=== PATIENT | female | born 1990 | race Caucasian/White ===

== ENCOUNTER 2018-10-14 10:53 | Emergency (ER) | payer OTHER ==
[2018-10-14] MEDS ORDERED: ONDANSETRON 4 MG TAB.RAPDIS PO ONE (11:19)
--- NOTE | 2018-10-14 11:23 | ER Document Report ---
ED Medical Screen (RME) - General Chief Complaint: Dizziness Stated Complaint: DIZZY/NAUSEA Time Seen by Provider: 10/14/18 11:19 Primary Care Provider: JULIO CESAR JAUREGUI [Primary Care Provider] - Follow up as needed Mode of Arrival: Ambulatory Information source: Patient TRAVEL OUTSIDE OF THE [place] IN LAST 30 DAYS: No - HPI Patient complains to provider of: dizziness; N/V Onset: This morning - pt is approx 29 wks with onset of dizziness, N/V earlier this am - Related Data Allergies/Adverse Reactions: amoxicillin Allergy (Verified 10/14/18 10:55) Past Medical History Renal/ Medical History: Denies: Hx Peritoneal Dialysis Physical Exam - Vital signs Vitals: Temp Pulse Resp BP Pulse Ox 97.8 F 92 18 129/80 H 97 10/14/18 11:01 10/14/18 11:01 10/14/18 11:01 10/14/18 11:01 10/14/18 11:01 Course - Vital Signs Vital signs: Temp Pulse Resp BP Pulse Ox 97.8 F 92 18 129/80 H 97 10/14/18 11:01 10/14/18 11:01 10/14/18 11:01 10/14/18 11:01 10/14/18 11:01 Doctor's Discharge - Discharge Referrals: JULIO CESAR JAUREGUI [Primary Care Provider] - Follow up as needed
[2018-10-14 11:50] LABS: ABSOLUTE EOSINOPHILS # (AUTO) 0.1 10^3/uL (0.0-0.6); ABSOLUTE MONOCYTES (AUTO) 0.7 10^3/uL (0.1-1.4); ABSOLUTE NEUT (AUTO) 5.9 10^3/uL (1.7-8.2); BASOPHILS % (AUTO) 0.4 % (0-2); EOSINOPHILS % (AUTO) 1.6 % (0-6); HEMATOCRIT 35.3 % (36.0-47.0); HEMOGLOBIN 12.5 g/dL (12.0-15.5); LYMPHOCYTES % (AUTO) 22.9 % (13-45); MEAN CORPUSCULAR HEMOGLOBIN 29.6 pg (27.0-33.4); MEAN CORPUSCULAR HGB CONC 35.3 g/dL (32.0-36.0); MEAN CORPUSCULAR VOLUME 84 fl (80-97); PLATELET COUNT 168 10^3/uL (150-450); SEGMENTED NEUTROPHILS % (AUTO) 67.1 % (42-78); TOTAL CELLS COUNTED % (AUTO) 100 %; WHITE BLOOD COUNT 8.9 10^3/uL (4.0-10.5)
[2018-10-14] MEDS ORDERED: MECLIZINE HCL 25 MG TABLET PO ONE (11:53)
[2018-10-14 12:07] LABS: ALANINE AMINOTRANSFERASE 24 U/L (9-52); ALBUMIN 3.5 g/dL (3.5-5.0); ALKALINE PHOSPHATASE 92 U/L (38-126); ANION GAP 8 (5-19); ASPARTATE AMINO TRANSFERASE 15 U/L (14-36); BILIRUBIN,DIRECT 0.1 mg/dL (0.0-0.4); BILIRUBIN,TOTAL 0.2 mg/dL (0.2-1.3); BLOOD UREA NITROGEN 5 mg/dL (7-20); CALCIUM 8.9 mg/dL (8.4-10.2); CARBON DIOXIDE 22 mmol/L (22-30); CHLORIDE 105 mmol/L (98-107); GLUCOSE 84 mg/dL (75-110); POTASSIUM 4.1 mmol/L (3.6-5.0); SODIUM 134.7 mmol/L (137-145)
[2018-10-14 12:39] LABS: APPEARANCE,URINE SLIGHTLY-CLOUDY; BILIRUBIN,URINE NEGATIVE (NEGATIVE); COLOR,URINE YELLOW; GLUCOSE, URINE NEGATIVE (NEGATIVE); KETONES,URINE NEGATIVE (NEGATIVE); LEUKOCYTE ESTERASE,URINE NEGATIVE (NEGATIVE); NITRITE,URINE NEGATIVE (NEGATIVE); PROTEIN,URINE NEGATIVE (NEGATIVE); URINE SPECIFIC GRAVITY 1.003; UROBILINOGEN,URINE NEGATIVE mg/dL (<2.0)
--- NOTE | 2018-10-14 13:08 | ER Document Report ---
ED Dizziness/Weakness - General Chief Complaint: Dizziness Stated Complaint: DIZZY/NAUSEA Time Seen by Provider: 10/14/18 11:19 Primary Care Provider: JULIO CESAR JAUREGUI [NO LOCAL MD] - Follow up as needed Mode of Arrival: Ambulatory Notes: Pt is a 28 year old female, 29 weeks who presents today for dizziness that she woke up with this morning and is worse when she changes position and looks around. She describes it has a "spinning" feeling and denies headache with it but admits to nausea, vomiting and states she can't hold anything down. She denies any abdominal pain, states baby has been moving a lot today. She denies sick symptoms recently or hx of vertigo, she has had a recent cold that is getting better and denies ringing of the ears. She did fail her gestational diabetes 1 hour glucose test but states she'd eaten muffins on the way to the office and has no history of diabetes otherwise. TRAVEL OUTSIDE OF THE [place] IN LAST 30 DAYS: No - Related Data Allergies/Adverse Reactions: amoxicillin Allergy (Verified 10/14/18 10:55) Past Medical History - General Information source: Patient - Social History Smoking Status: Former Smoker Family History: Reviewed & Not Pertinent Patient has suicidal ideation: No Patient has homicidal ideation: No Renal/ Medical History: Denies: Hx Peritoneal Dialysis Review of Systems - Review of Systems Constitutional: No symptoms reported EENT: See HPI Cardiovascular: No symptoms reported Respiratory: No symptoms reported Gastrointestinal: See HPI Genitourinary: No symptoms reported Female Genitourinary: See HPI Musculoskeletal: No symptoms reported Skin: No symptoms reported Hematologic/Lymphatic: No symptoms reported Neurological/Psychological: See HPI Physical Exam - Vital signs Vitals: Temp Pulse Resp BP Pulse Ox 97.8 F 92 18 129/80 H 97 10/14/18 11:01 10/14/18 11:01 10/14/18 11:01 10/14/18 11:01 10/14/18 11:01 - Notes Notes: PHYSICAL EXAMINATION: GENERAL: Well-appearing and in no acute distress. HEAD: Atraumatic, normocephalic. EYES: no nystagmus, Pupils equal round and reactive to light, extraocular movements intact, sclera anicteric, conjunctiva are normal. ENT: ear canals without erythema or foreign body, TMs pearly [place] with good bony landmarks, nares patent, oropharynx clear without exudates. Moist mucous membranes. NECK: Normal range of motion, supple without lymphadenopathy LUNGS: CTAB and equal. No wheezes rales or rhonchi. HEART: Regular rate and rhythm without murmurs ABDOMEN: gravid, no tenderness. No guarding, no rebound BACK: no vertebral tenderness, normal ROM GI/: no CVA tenderness EXTREMITIES: Normal range of motion, no pitting edema. No cyanosis. NEUROLOGICAL: dizzy with simple head movements, otherwise Cranial nerves grossly intact. Normal sensory/motor exams. PSYCH: Normal mood, normal affect. SKIN: Warm, Dry, normal turgor, no rashes or lesions noted Course - Re-evaluation Re-evalutation: 10/14/18 13:15 labwork unremarkable today with normal glucose, pt able to sit up in bed and is smiling and talking with kids and on re-evaluation after meclizine. She states she feels "so much better." heart tones 156bpm. pt discharged in stable condition to follow up with obgyn. - Vital Signs Vital signs: Temp Pulse Resp BP Pulse Ox 97.4 F 85 17 121/83 97 10/14/18 13:16 10/14/18 13:16 10/14/18 13:16 10/14/18 13:16 10/14/18 13:16 - Laboratory Result Diagrams: 10/14/18 11:30 10/14/18 11:30 Laboratory results interpreted by me: 10/14/18 10/14/18 11:30 11:30 Hct 35.3 L RDW 15.0 H Sodium 134.7 L BUN 5 L Creatinine 0.42 L Total Protein 6.0 L Discharge - Discharge Clinical Impression: Vertigo Condition: Stable Disposition: HOME, SELF-CARE Additional Instructions: Return immediately for any new or worsening symptoms. Follow up with OBGYN, call tomorrow to make followup appointment. Prescriptions: Meclizine HCl [Antivert 25 mg Tablet] 25 mg PO TID #15 tablet Metoclopramide HCl [Reglan 10 mg Tablet] 10 mg PO ACHS #30 tablet Referrals: LOCALMD,NO [NO LOCAL MD] - Follow up as needed
[2018-10-14 13:17] VITALS: BP 121/83
== END 2018-10-14 13:19 | disposition home or self-care (01) ==
LOC: ER 10:53
DX: O26.93 Pregnancy related conditions, unspecified, third trimester (principal); R42 Dizziness and giddiness; R11.0 Nausea; Z3A.29 29 weeks gestation of pregnancy
CPT/HCPCS: 99284; 36415; 85025; 80053; 81001; S0119

== ENCOUNTER 2018-12-07 08:18 | Inpatient (IN) | payer OTHER ==
[2018-12-07] MEDS ORDERED: RINGERS SOLUTION,LACTATED 300 ML IV ONE (09:45)
[2018-12-07] MEDS ORDERED: RINGERS SOLUTION,LACTATED 1,000 ML IV PRN (09:45)
[2018-12-07] MEDS ORDERED: OXYTOCIN/NORMAL SALINE 20 UNIT/1,000 ML RTUINJ IV PRN (09:45)
[2018-12-07] MEDS ORDERED: LIDOCAINE 1% INJ-PF (10 MG/ML) 30 ML SDV ONE (09:47)
[2018-12-07] MEDS ORDERED: MISOPROSTOL 0.2 MG TABLET ONE (09:47)
[2018-12-07] MEDS ORDERED: OXYTOCIN/NORMAL SALINE 20 UNIT/1,000 ML RTUINJ ONE (09:47)
[2018-12-07 11:22] LABS: ABSOLUTE EOSINOPHILS # (AUTO) 0.1 10^3/uL (0.0-0.6); ABSOLUTE LYMPHOCYTES (AUTO) 1.7 10^3/uL (0.5-4.7); ABSOLUTE MONOCYTES (AUTO) 0.5 10^3/uL (0.1-1.4); ABSOLUTE NEUT (AUTO) 5.7 10^3/uL (1.7-8.2); BASOPHILS % (AUTO) 0.3 % (0-2); EOSINOPHILS % (AUTO) 1.1 % (0-6); HEMATOCRIT 36.1 % (36.0-47.0); HEMOGLOBIN 12.4 g/dL (12.0-15.5); LYMPHOCYTES % (AUTO) 21.4 % (13-45); MEAN CORPUSCULAR HEMOGLOBIN 29.4 pg (27.0-33.4); MEAN CORPUSCULAR HGB CONC 34.4 g/dL (32.0-36.0); MEAN CORPUSCULAR VOLUME 86 fl (80-97); MONOCYTES % (AUTO) 6.7 % (3-13); PLATELET COUNT 126 10^3/uL (150-450); RED BLOOD COUNT 4.22 10^6/uL (3.72-5.28); RED CELL DISTRIBUTION WIDTH 14.6 % (11.5-14.0); SEGMENTED NEUTROPHILS % (AUTO) 70.5 % (42-78); TOTAL CELLS COUNTED % (AUTO) 100 %
[2018-12-07 11:31] LABS: APPEARANCE,URINE CLOUDY; BILIRUBIN,URINE NEGATIVE (NEGATIVE); COLOR,URINE YELLOW; GLUCOSE, URINE NEGATIVE (NEGATIVE); KETONES,URINE NEGATIVE (NEGATIVE); LEUKOCYTE ESTERASE,URINE NEGATIVE (NEGATIVE); NITRITE,URINE NEGATIVE (NEGATIVE); PROTEIN,URINE NEGATIVE (NEGATIVE); URINE SPECIFIC GRAVITY 1.016; UROBILINOGEN,URINE NEGATIVE mg/dL (<2.0)
[2018-12-07 11:45] LABS: ALANINE AMINOTRANSFERASE 21 U/L (9-52); ALBUMIN 3.2 g/dL (3.5-5.0); ALKALINE PHOSPHATASE 138 U/L (38-126); ANION GAP 9 (5-19); ASPARTATE AMINO TRANSFERASE 18 U/L (14-36); BILIRUBIN,DIRECT 0.2 mg/dL (0.0-0.4); BILIRUBIN,TOTAL 0.3 mg/dL (0.2-1.3); BLOOD UREA NITROGEN 5 mg/dL (7-20); CALCIUM 8.8 mg/dL (8.4-10.2); CARBON DIOXIDE 21 mmol/L (22-30); CHLORIDE 108 mmol/L (98-107); GLUCOSE 112 mg/dL (75-110); POTASSIUM 3.8 mmol/L (3.6-5.0); SODIUM 137.6 mmol/L (137-145); TOTAL PROTEIN 5.7 g/dL (6.3-8.2); URIC ACID 4.9 mg/dL (2.5-6.2)
[2018-12-07 11:48] LABS: URINE AMPHETAMINES SCREEN NEGATIVE; URINE BARBITURATES SCREEN NEGATIVE; URINE BENZODIAZEPINES SCREEN NEGATIVE; URINE COCAINE SCREEN NEGATIVE; URINE MARIJUANA (THC) SCREEN NEGATIVE; URINE METHADONE SCREEN NEGATIVE; URINE PHENCYCLIDINE SCREEN NEGATIVE
[2018-12-07 11:55] LABS: UR PRO/CREAT RATIO RESULT 0.1 mg/mg (0.0-0.2); URINE CREATININE 122.9 mg/dL (16-327); URINE PROTEIN 7.7 mg/dL (<12)
[2018-12-07] MEDS ORDERED: EPHEDRINE SULFATE INJ 50 MG/1 ML AMPULE ONE (16:50)
[2018-12-07] MEDS ORDERED: BUPIVACAINE HCL 0.25 % INJ/PF (2.5 MG/1 ML) 30 ML VIAL ONE (16:50)
[2018-12-07] MEDS ORDERED: FENTANYL/BUPIVACAINE/NS/PF 300 MCG/150 ML RTUINJ EPI ONE (16:50)
[2018-12-07 17:07] LABS: ABSOLUTE EOSINOPHILS # (AUTO) 0.1 10^3/uL (0.0-0.6); ABSOLUTE MONOCYTES (AUTO) 0.7 10^3/uL (0.1-1.4); ABSOLUTE NEUT (AUTO) 6.4 10^3/uL (1.7-8.2); BASOPHILS % (AUTO) 0.3 % (0-2); EOSINOPHILS % (AUTO) 0.9 % (0-6); HEMATOCRIT 36.8 % (36.0-47.0); HEMOGLOBIN 12.6 g/dL (12.0-15.5); LYMPHOCYTES % (AUTO) 21.9 % (13-45); MEAN CORPUSCULAR HEMOGLOBIN 29.1 pg (27.0-33.4); MEAN CORPUSCULAR HGB CONC 34.1 g/dL (32.0-36.0); MEAN CORPUSCULAR VOLUME 85 fl (80-97); MONOCYTES % (AUTO) 7.1 % (3-13); PLATELET COUNT 128 10^3/uL (150-450); RED BLOOD COUNT 4.31 10^6/uL (3.72-5.28); RED CELL DISTRIBUTION WIDTH 15.2 % (11.5-14.0); SEGMENTED NEUTROPHILS % (AUTO) 69.8 % (42-78); TOTAL CELLS COUNTED % (AUTO) 100 %; WHITE BLOOD COUNT 9.1 10^3/uL (4.0-10.5)
[2018-12-07] MEDS ORDERED: ONDANSETRON HCL INJ/PF 4 MG/2 ML SDV ONE (23:36)
[2018-12-07] MEDS ORDERED: ONDANSETRON HCL INJ/PF 4 MG/2 ML SDV IV ONE (23:59)
[2018-12-08] MEDS ORDERED: OXYTOCIN/NORMAL SALINE 20 UNIT/1,000 ML RTUINJ ONE (01:28)
--- NOTE | 2018-12-08 02:08 | Delivery Summary ---
Del Sum A-C Datetime Report Generated by CPN: 12/08/2018 02:08 DELIVERY PERSONNEL DELIVERY PERSONNEL: [id number] Delivery Doctor:: Iris Xiao MD Labor and Delivery Nurse:: Shima Villasenor, RN Nursery Nurse:: Michelle MckeonLYNDSAY juarez Lure Maker/INDIAN NANNY: Jana Pacheco, BAND BUILDER MATERNAL INFORMATION Delivery Anesthesia: Epidural Medications After Delivery: Pitocin Drip 20 Units/1000ml NSS Maternal Complications: None LABOR SUMMARY EDC: 12/28/2018 00:00 No. Babies in Womb: 1 Attempted: No Labor Anesthesia: Epidural LABOR INFORMATION Reason for Induction: Chronic Primary/Essential HTN; Maternal Diabetes Onset of Labor: 12/07/2018 18:27 Complete Dilatation: 12/08/2018 00:46 Oxytocin: Induction Group B Beta Strep: Negative Steroids Given: None Reason Steroids Not Administered: Not Applicable MEMBRANES Membranes Rupture Method: Artificial Rupture of Membranes: 12/07/2018 22:45 Length of Rupture (hr): 2.23 Amniotic Fluid Color: Clear Amniotic Fluid Amount: Moderate Amniotic Fluid Odor: Normal STAGES OF LABOR Stage 1 hr: 6 Stage 1 min: 19 Stage 2 hr: 0 Stage 2 min: 13 Stage 3 hr: 0 Stage 3 min: 3 Total Time in Labor hr: 6 Total Time in Labor min: 35 VAGINAL DELIVERY Episiotomy: None Laceration #1: None Laceration Extension #1: N/A Laceration Repair: Not Applicable CSECTION DELIVERY Primary Indication: N/A Secondary Indication: N/A CSection Incidence: N/A Labor: N/A Elective: N/A CSection Incision: N/A BABY A INFORMATION Infant Delivery Date/Time: 12/08/2018 00:59 Method of Delivery: Vaginal Born in Route : No : N/A Forceps: N/A Vacuum Extraction: N/A Shoulder Dystocia : No PRESENTATION/POSITION BABY A Presentation: Cephalic Cephalic Presentation: Vertex Vertex Position: Right Occipital Anterior Breech Presentation: N/A PLACENTA INFORMATION BABY A Placenta Delivery Time : 12/08/2018 01:02 Placenta Method of Delivery: Spontaneous Placenta Status: Delivered SCORES BABY A Heart Rate 1 min: >100 bpm Resp Effort 1 min: Good Cry Reflex Irritability 1 min: Cough or Sneeze or Pulls Away Muscle Tone 1 min: Active Motion Color 1 min: Body [place], Extremities Blue Resuscitation Effort 1 min: Tactile Stimulation SCORE 1 MIN: 9 Heart Rate 5 min: >100 bpm Resp Effort 5 min: Good Cry Reflex Irritability 5 min: Cough or Sneeze or Pulls Away Muscle Tone 5 min: Active Motion Color 5 min: Body [place], Extremities Blue Resuscitation Effort 5 min: Tactile Stimulation SCORE 5 MIN: 9 INFANT INFORMATION BABY A Gestational Age at Delivery: 37.1 Gestational Status: Early Term- 37- 38.6 Weeks Outcome : Liveborn Infant Condition : Stable Infant Sex: Male IDENTIFICATION BABY A Verification Date/Time: 12/08/2018 01:21 ID Band Number: [id number] Mother's Name Verified: Yes RN Verifying Infant: Bisi LYNDSAY Additional Verifying Personnel: Avery Jovoncalos RN WEIGHT/LENGTH BABY A Infant Birthweight (gm): 3599 Infant Weight (lb): 7 Weight (oz): 15 Infant Length (in): 21.00 Length (cm): 53.34 CORD INFORMATION BABY A No. Cord Vessels: 3 Nuchal Cord : Around Neck x1, Loose Cord Blood Taken: Yes-For Storage (Mom's Blood type +) Suction: Mouth; Nose ASSESSMENT BABY A Complications: Other Complications- Other: right compound hand Physical Findings at Delivery: Within Normal Limits Physical Findings- Other: see full nursery cable tool operator Infant Respirations: Appears Normal Skin to Skin: Yes Analytical Lead/ALS Called : No Infant Care By: Temo Murillo RN Transferred To: Remains with Mother BABY B INFORMATION : N/A
--- NOTE | 2018-12-08 02:18 | Warning Signs in Babies ---
VOD Warning Signs Datetime Report Generated by [facility]: 12/08/2018 02:17 VOD#[id number] -Warning Signs in Babies: Needs to be viewed. (12/04/2018 19:48:Shima Villasenor RN)
[2018-12-08] MEDS ORDERED: OXYTOCIN/NORMAL SALINE 20 UNIT/1,000 ML RTUINJ IV PRN (02:20)
[2018-12-08] MEDS ORDERED: PROMETHAZINE HCL 25 MG TABLET PO PRN (02:20)
[2018-12-08] MEDS ORDERED: NA PHOS,M-B/NA PHOS,DI-BA (ADULT) 133 ML ENEMA PR PRN (02:20)
[2018-12-08] MEDS ORDERED: ZOLPIDEM TARTRATE 5 MG TABLET PO PRN (02:20)
[2018-12-08] MEDS ORDERED: DIPH/PERTUSS(ACELL)/TETANUS VAC/PF 0.5 ML SYR (>=10YO) IM PRN (02:20)
[2018-12-08] MEDS ORDERED: DIPHENHYDRAMINE HCL 25 MG CAPSULE PO PRN (02:20)
[2018-12-08] MEDS ORDERED: ACETAMINOPHEN 325 MG TABLET PO PRN (02:20)
[2018-12-08] MEDS ORDERED: PROMETHAZINE HCL 25 MG SUPP.RECT PR PRN (02:20)
[2018-12-08] MEDS ORDERED: PSEUDOEPHEDRINE HCL 30 MG TABLET PO PRN (02:20)
[2018-12-08] MEDS ORDERED: DIBUCAINE 1% OINTMENT 56 GM TP PRN (02:20)
[2018-12-08] MEDS ORDERED: PROMETHAZINE HCL INJ 25 MG/1 ML VIAL IV PRN (02:20)
[2018-12-08] MEDS ORDERED: MEASLES,MUMPS&RUBELLA VACC/PF 0.5 ML VIAL SUBCUT PRN (02:20)
[2018-12-08] MEDS ORDERED: GLYCERIN/WITCH HAZEL LEAF 1 EACH MED..WIPE TP PRN (02:20)
[2018-12-08] MEDS ORDERED: BENZOCAINE/MENTHOL AEROSOL SPRAY 56 ML TOP PRN (02:20)
[2018-12-08] MEDS ORDERED: MAGNESIUM HYDROXIDE SUSP 30 ML UDCUP PO PRN (02:20)
[2018-12-08] MEDS ORDERED: ACETAMINOPHEN WITH CODEINE #3 TABLET PO PRN ×2 (02:20)
[2018-12-08] MEDS: IBUPROFEN 800 MG TABLET PO SCH ×3 (05:21→22:47)
--- NOTE | 2018-12-08 09:17 | PDOC PROGRESS REPORT ---
Subjective-OB Progress Note for:: 12/08/18 Subjective: Doing well, hsb at BS, feeling good, lochia moderate Physical Exam (OB) Vital Signs: Temp Pulse Resp BP Pulse Ox 97.8 F 83 18 114/79 100 12/08/18 08:03 12/08/18 08:03 12/08/18 08:03 12/08/18 08:03 12/08/18 08:03 Intake & Output 12/07/18 12/08/18 12/09/18 06:59 06:59 06:59 Weight 108.7 kg - PIH/Pre-Eclampsia DTR's: 1 + Clonus: Negative Headache: Absent Epigastric Pain: No Visual Changes: No - Lochia Lochia Amount: Scant < 10 ml Lochia Color: Rubra/Red - Abdomen Description: Soft, Round Hernia Present: No Fundal Description: Firm, Midline Fundal Height: u/u - u/2 Objective-Diagnostic Laboratory: 12/07/18 16:44 12/07/18 10:25 12/07/18 12/07/18 12/07/18 08:34 10:25 10:25 WBC 8.0 RBC 4.22 Hgb 12.4 Hct 36.1 MCV 86 MCH 29.4 MCHC 34.4 RDW 14.6 H Plt Count 126 L Seg Neutrophils % 70.5 Lymphocytes % 21.4 Monocytes % 6.7 Eosinophils % 1.1 Basophils % 0.3 Absolute Neutrophils 5.7 Absolute Lymphocytes 1.7 Absolute Monocytes 0.5 Absolute Eosinophils 0.1 Absolute Basophils 0.0 Sodium Potassium Chloride Carbon Dioxide Anion Gap BUN Creatinine Est GFR ( Amer) Est GFR (Non-Af Amer) Glucose Uric Acid Calcium Total Bilirubin AST ALT Alkaline Phosphatase Total Protein Albumin Urine Color YELLOW Urine Appearance CLOUDY Urine pH 5.0 Ur Specific [place] 1.016 Urine Protein NEGATIVE Urine Glucose (UA) NEGATIVE Urine Ketones NEGATIVE Urine Blood NEGATIVE Urine Nitrite NEGATIVE Ur Leukocyte Esterase NEGATIVE Urine WBC (Auto) 7 Urine RBC (Auto) 2 Blood Type A POSITIVE Antibody Screen NEGATIVE 12/07/18 12/07/18 10:25 16:44 WBC 9.1 RBC 4.31 Hgb 12.6 Hct 36.8 MCV 85 MCH 29.1 MCHC 34.1 RDW 15.2 H Plt Count 128 L Seg Neutrophils % 69.8 Lymphocytes % 21.9 Monocytes % 7.1 Eosinophils % 0.9 Basophils % 0.3 Absolute Neutrophils 6.4 Absolute Lymphocytes 2.0 Absolute Monocytes 0.7 Absolute Eosinophils 0.1 Absolute Basophils 0.0 Sodium 137.6 Potassium 3.8 Chloride 108 H Carbon Dioxide 21 L Anion Gap 9 BUN 5 L Creatinine 0.41 L Est GFR ( Amer) > 60 Est GFR (Non-Af Amer) > 60 Glucose 112 H Uric Acid 4.9 Calcium 8.8 Total Bilirubin 0.3 AST 18 ALT 21 Alkaline Phosphatase 138 H Total Protein 5.7 L Albumin 3.2 L Urine Color Urine Appearance Urine pH Ur Specific [place] Urine Protein Urine Glucose (UA) Urine Ketones Urine Blood Urine Nitrite Ur Leukocyte Esterase Urine WBC (Auto) Urine RBC (Auto) Blood Type Antibody Screen Assessment and Plan(PN) - Assessment and Plan (1) Vaginal delivery Is this a current diagnosis for this admission?: Yes (2) Gestational diabetes mellitus (GDM) in childbirth, diet controlled Is this a current diagnosis for this admission?: Yes (3) Gestational thrombocytopenia without hemorrhage in third trimester Is this a current diagnosis for this admission?: Yes (4) Chronic hypertension affecting Is this a current diagnosis for this admission?: Yes - Time Spent with Patient Time with patient: Less than 15 minutes Medications reviewed and adjusted accordingly: Yes - Disposition Anticipated Discharge: Home Within: within 24 hours
[2018-12-08] MEDS: DOCUSATE SODIUM 100 MG CAPSULE PO SCH ×2 (09:19→18:24)
[2018-12-08] MEDS: PRENATAL VITAMIN W DHA CAPSULE PO SCH (09:19)
[2018-12-08] MEDS: SENNOSIDES/DOCUSATE 8.6-50 MG 1 EACH TABLET PO SCH (09:19)
[2018-12-08] MEDS: FAMOTIDINE 20 MG TABLET PO SCH ×2 (09:19→22:47)
[2018-12-08] MEDS: FERROUS SULFATE 325 MG TABLET PO SCH ×2 (09:19→18:24)
[2018-12-09] MEDS: IBUPROFEN 800 MG TABLET PO SCH ×2 (05:41→14:13)
[2018-12-09 07:32] LABS: HEMATOCRIT 36.3 % (36.0-47.0); HEMOGLOBIN 12.5 g/dL (12.0-15.5); MEAN CORPUSCULAR HEMOGLOBIN 29.5 pg (27.0-33.4); MEAN CORPUSCULAR HGB CONC 34.5 g/dL (32.0-36.0); MEAN CORPUSCULAR VOLUME 86 fl (80-97); PLATELET COUNT 142 10^3/uL (150-450); RED BLOOD COUNT 4.25 10^6/uL (3.72-5.28); RED CELL DISTRIBUTION WIDTH 15.4 % (11.5-14.0); WHITE BLOOD COUNT 8.7 10^3/uL (4.0-10.5)
--- NOTE | 2018-12-09 09:17 | PDOC PROGRESS REPORT ---
Subjective-OB Progress Note for:: 12/09/18 Subjective: Doing well, holding baby, would like to go home if baby goes, scant bleeding Physical Exam (OB) Vital Signs: Temp Pulse Resp BP Pulse Ox 98.0 F 77 14 126/77 H 100 12/09/18 08:10 12/09/18 08:10 12/09/18 08:10 12/09/18 08:10 12/09/18 08:10 Intake & Output 12/08/18 12/09/18 12/10/18 06:59 06:59 06:59 Weight 108.7 kg - PIH/Pre-Eclampsia DTR's: 2 + Clonus: Negative Headache: Absent Epigastric Pain: No Visual Changes: No - Lochia Lochia Amount: Small 10-25 ml Lochia Color: Rubra/Red - Abdomen Description: Soft, Round Hernia Present: No Fundal Description: Firm Fundal Height: u/u - u/2 Objective-Diagnostic Laboratory: 12/09/18 07:03 12/07/18 10:25 12/09/18 07:03 WBC 8.7 RBC 4.25 Hgb 12.5 Hct 36.3 MCV 86 MCH 29.5 MCHC 34.5 RDW 15.4 H Plt Count 142 L Assessment and Plan(PN) - Assessment and Plan (1) Vaginal delivery Is this a current diagnosis for this admission?: Yes (2) Gestational diabetes mellitus (GDM) in childbirth, diet controlled Is this a current diagnosis for this admission?: Yes (3) Gestational thrombocytopenia without hemorrhage in third trimester Is this a current diagnosis for this admission?: Yes (4) Chronic hypertension affecting Is this a current diagnosis for this admission?: Yes - Time Spent with Patient Time with patient: Less than 15 minutes Medications reviewed and adjusted accordingly: Yes - Disposition Anticipated Discharge: Home Within: within 24 hours
[2018-12-09] MEDS: SENNOSIDES/DOCUSATE 8.6-50 MG 1 EACH TABLET PO SCH (10:18)
[2018-12-09] MEDS: PRENATAL VITAMIN W DHA CAPSULE PO SCH (10:18)
[2018-12-09] MEDS: FERROUS SULFATE 325 MG TABLET PO SCH (10:18)
[2018-12-09] MEDS: DOCUSATE SODIUM 100 MG CAPSULE PO SCH (10:18)
[2018-12-09] MEDS: FAMOTIDINE 20 MG TABLET PO SCH (10:20)
--- NOTE | 2018-12-09 15:08 | PDOC DISCHARGE SUMMARY ---
Final Diagnosis Discharge Date: 12/09/18 - Final Diagnosis (1) Chronic hypertension affecting Is this a current diagnosis for this admission?: Yes (2) Gestational diabetes mellitus (GDM) in childbirth, diet controlled Is this a current diagnosis for this admission?: Yes (3) Gestational thrombocytopenia without hemorrhage in third trimester Is this a current diagnosis for this admission?: Yes (4) Vaginal delivery Is this a current diagnosis for this admission?: Yes Discharge Data - Discharge Medication Prescriptions: Acetaminophen [Tylenol 325 mg Tablet] 650 mg PO Q4HP PRN 14 Days #60 tablet PRN Reason: For Pain Benzocaine/Menthol [Dermoplast Aerosol [place] 56 ml] 1 applic TOP PRN PRN #1 can PRN Reason: Ibuprofen [Motrin 800 mg Tablet] 800 mg PO Q8 30 Days #60 tablet Home Medications: Vit,Calc76/Iron/Folic [Pnv 29-1 Tablet] 1 tab PO DAILY 12/04/18 Acetaminophen [Tylenol 325 mg Tablet] 650 mg PO Q4HP PRN 14 Days #60 tablet 12/09/18 Benzocaine/Menthol [Dermoplast Aerosol [place] 56 ml] 1 applic TOP PRN PRN #1 can 12/09/18 Dibucaine 1% Ointment [Nupercainal 1% Oint 56 gm] 1 applic TP PRN PRN #0 tube 12/09/18 Docusate Sodium [Colace 100 mg Capsule] 100 mg PO BID capsule 12/09/18 Famotidine [Pepcid 20 mg Tablet] 20 mg PO Q12 tablet 12/09/18 Ferrous Sulfate [Feosol 325 mg Tablet] 325 mg PO BID tablet 12/09/18 Glycerin/Witch Blaire Ismay [Tucks Take-Alongs Pads 1 Each] 1 each TP DAILYP PRN med..pad 12/09/18 Ibuprofen [Motrin 800 mg Tablet] 800 mg PO Q8 30 Days #60 tablet 12/09/18 Gestational Age: 37.1 Reason(s) for Admission: Induction of Labor, Medical Complications, Gestional Diabetes, Other - CHTN Admission Note: at 37+0ega admitted to labor and delivery for IOL due to GDM and CHTN. Procedures: NST, Management of Medical Complications Procedure(s) Note: Reactive NST, uncomplicated Intrapartum Procedure(s): Spontaneous Vaginal Delivery Intrapartum Procedure Note: uncomplicated, no perineal lacerations, Compound right hand and nuchal cord Complication(s) Note: none - Data Baby 1 Male at 1 minute: 9 at 5 minutes: 9 Weight: 3599 kg Home with Mother: Yes Complications: No - Diagnosis Test Laboratory: Temp Pulse Resp BP Pulse Ox 98.0 F 77 14 126/77 H 100 12/09/18 08:10 12/09/18 08:10 12/09/18 08:10 12/09/18 08:10 12/09/18 08:10 12/07/18 12/07/18 12/07/18 08:34 10:25 16:44 RBC 4.22 4.31 Hgb 12.4 12.6 Hct 36.1 36.8 Urine Opiates Screen NEGATIVE 12/09/18 07:03 RBC 4.25 Hgb 12.5 Hct 36.3 Urine Opiates Screen - Discharge information/Instructions Discharge Activity: Activity As Tolerated Discharge Diet: As Tolerated Disposition: HOME, SELF-CARE Follow up with: [facility] in: 3, Days - BP check
[2018-12-09 15:30] VITALS: BP 134/83
--- NOTE | 2018-12-10 09:35 | Delivery Summary ---
Del Sum A-C Datetime Report Generated by CPN: 12/10/2018 09:35 DELIVERY PERSONNEL DELIVERY PERSONNEL: [id number] Delivery Doctor:: Iris Xiao MD Anesthesiologist:: Levi Hobson MD Labor and Delivery Nurse:: Shima Villasenor RN Nursery Nurse:: Michelle Murillo RN Structural Steel Shop Supervisor/CAR CONSTRUCTION SUPERINTENDENT: Jana Pacheco, ACTIVITIES COORDINATOR MATERNAL INFORMATION Delivery Anesthesia: Epidural Medications After Delivery: Pitocin Drip 20 Units/1000ml NSS Estimated Blood Loss (ml): 100 Maternal Complications: None Provider Comments: VMI delivered in LEWIS presentation. Loose nuchal cord and compound Right hand. Shoulders and body delivered without difficulty. Cord doubly clamped and infant to maternal abdomen for NRP. Placenta delivered intact spontaneously. FF at U. No perineal lacerations. Mother and baby stable upon provider leaving the room. LABOR SUMMARY EDC: 12/28/2018 00:00 No. Babies in Womb: 1 Attempted: No Labor Anesthesia: Epidural LABOR INFORMATION Reason for Induction: Chronic Primary/Essential HTN; Maternal Diabetes Onset of Labor: 12/07/2018 18:27 Complete Dilatation: 12/08/2018 00:46 Oxytocin: Induction Group B Beta Strep: Negative Steroids Given: None Reason Steroids Not Administered: Not Applicable MEMBRANES Membranes Rupture Method: Artificial Rupture of Membranes: 12/07/2018 22:45 Length of Rupture (hr): 2.23 Amniotic Fluid Color: Clear Amniotic Fluid Amount: Moderate Amniotic Fluid Odor: Normal STAGES OF LABOR Stage 1 hr: 6 Stage 1 min: 19 Stage 2 hr: 0 Stage 2 min: 13 Stage 3 hr: 0 Stage 3 min: 3 Total Time in Labor hr: 6 Total Time in Labor min: 35 VAGINAL DELIVERY Episiotomy: None Laceration #1: None Laceration Extension #1: N/A Laceration Repair: Not Applicable Sponge Count Correct: Yes Sharps Count Correct: Yes CSECTION DELIVERY Primary Indication: N/A Secondary Indication: N/A CSection Incidence: N/A Labor: N/A Elective: N/A CSection Incision: N/A BABY A INFORMATION Delivery Date/Time: 12/08/2018 00:59 Method of Delivery: Vaginal Method of Delivery: Vaginal Born in Route : No : N/A Forceps: N/A Vacuum Extraction: N/A Shoulder Dystocia : No PRESENTATION/POSITION BABY A Presentation: Cephalic Cephalic Presentation: Vertex Vertex Position: Right Occipital Anterior Breech Presentation: N/A PLACENTA INFORMATION BABY A Placenta Delivery Time : 12/08/2018 01:02 Placenta Method of Delivery: Spontaneous Placenta Method of Delivery: Spontaneous Placenta Status: Delivered SCORES BABY A Heart Rate 1 min: >100 bpm Resp Effort 1 min: Good Cry Reflex Irritability 1 min: Cough or Sneeze or Pulls Away Muscle Tone 1 min: Active Motion Color 1 min: Body [place], Extremities Blue Resuscitation Effort 1 min: Tactile Stimulation SCORE 1 MIN: 9 Heart Rate 5 min: >100 bpm Resp Effort 5 min: Good Cry Reflex Irritability 5 min: Cough or Sneeze or Pulls Away Muscle Tone 5 min: Active Motion Color 5 min: Body [place], Extremities Blue Resuscitation Effort 5 min: Tactile Stimulation SCORE 5 MIN: 9 INFANT INFORMATION BABY A Gestational Age at Delivery: 37.1 Gestational Status: Early Term- 37- 38.6 Weeks Infant Outcome : Liveborn Infant Condition : Stable Infant Sex: Male Sex: Male IDENTIFICATION BABY A Verification Date/Time: 12/08/2018 01:21 ID Band Number: [id number] Mother's Name Verified: Yes Infant RN Verifying : BisiLYNDSAY Additional Verifying Personnel: Avery Jacobo RN WEIGHT/LENGTH BABY A Infant Birthweight (gm): 3599 Weight (lb): 7 Infant Weight (oz): 15 Length (in): 21.00 Infant Length (cm): 53.34 CORD INFORMATION BABY A No. Cord Vessels: 3 Nuchal Cord : Around Neck x1, Loose Cord Blood Taken: Yes-For Storage (Mom's Blood type +) Infant Suction: Mouth; Nose ASSESSMENT BABY A Infant Complications: Other Complications- Other: right compound hand Physical Findings at Delivery: Within Normal Limits Physical Findings- Other: see full nursery control inspector Infant Respirations: Appears Normal Skin to Skin: Yes Fitness Coordinator/ALS Called : No Care By: Temo Murillo RN Transferred To: Remains with Mother BABY B INFORMATION : N/A SIGNATURES Signature: with User ID: [email or web address]
== END 2018-12-09 16:25 | disposition home or self-care (01) | DRG 806 ==
LOC: LR 08:18 → 2S 12-08 03:38
PROVIDERS: ADMIT Student in an Organized Health Care Education/Training Program; ATTEND Student in an Organized Health Care Education/Training Program
PROC: 10E0XZZ Delivery of Products of Conception, External Approach (ICD-10-PCS; principal; 2018-12-07)
PROC: 3E033VJ Introduction of Other Hormone into Peripheral Vein, Percutaneous Approach (ICD-10-PCS; 2018-12-07)
PROC: 10907ZC Drainage of Amniotic Fluid, Therapeutic from Products of Conception, Via Natural or Artificial Opening (ICD-10-PCS; 2018-12-07)
DX: O24.425 Gestational diabetes mellitus in childbirth, controlled by oral hypoglycemic drugs (principal); O99.12 Other diseases of the blood and blood-forming organs and certain disorders involving the immune mechanism complicating childbirth; Z37.0 Single live birth; D69.6 Thrombocytopenia, unspecified; O16.4 Unspecified maternal hypertension, complicating childbirth; O69.81X0 Labor and delivery complicated by cord around neck, without compression, not applicable or unspecified; O32.6XX0 Maternal care for compound presentation, not applicable or unspecified; O99.334 Smoking (tobacco) complicating childbirth; F17.210 Nicotine dependence, cigarettes, uncomplicated; Z3A.37 37 weeks gestation of pregnancy; Z88.0 Allergy status to penicillin
CPT/HCPCS: 36415; 80053; 80307; 81001; 82570; 83615; 84156; 84550; 85025; 85027; 86592; 86850; 86900; 86901; 94760; J2405; J2590; J3010; J3490

== ENCOUNTER 2020-07-02 00:17 | Outpatient (CLI) | payer OTHER ==
[2020-07-02 00:50] LABS: APPEARANCE,URINE CLOUDY; BILIRUBIN,URINE NEGATIVE (NEGATIVE); COLOR,URINE YELLOW; GLUCOSE, URINE NEGATIVE (NEGATIVE); KETONES,URINE NEGATIVE (NEGATIVE); LEUKOCYTE ESTERASE,URINE LARGE (NEGATIVE); NITRITE,URINE NEGATIVE (NEGATIVE); PROTEIN,URINE 30 mg/dL (NEGATIVE); URINE SPECIFIC GRAVITY 1.016; UROBILINOGEN,URINE NEGATIVE mg/dL (<2.0)
[2020-07-02] MEDS ORDERED: HYDROXYZINE PAMOATE 50 MG CAPSULE PO ONE (01:18)
[2020-07-02] MEDS ORDERED: HYDROXYZINE PAMOATE 50 MG CAPSULE ONE (01:26)
[2020-07-02 01:37] LABS: URINE AMPHETAMINES SCREEN NEGATIVE; URINE BARBITURATES SCREEN NEGATIVE; URINE BENZODIAZEPINES SCREEN NEGATIVE; URINE COCAINE SCREEN NEGATIVE; URINE MARIJUANA (THC) SCREEN NEGATIVE; URINE METHADONE SCREEN NEGATIVE
[2020-07-02 01:41] LABS: URINE PHENCYCLIDINE SCREEN NEGATIVE
== END 2020-07-02 01:35 | disposition home or self-care (01) ==
LOC: LC 00:17
PROVIDERS: ATTEND Obstetrics & Gynecology Gynecology
DX: O47.1 False labor at or after 37 completed weeks of gestation (principal); Z3A.39 39 weeks gestation of pregnancy
CPT/HCPCS: 59025; 80307; 81005; 84112

== ENCOUNTER 2020-07-06 06:10 | Inpatient (IN) | payer OTHER ==
--- NOTE | 2020-07-06 06:18 | Non Stress Test Report ---
Non Stress Test Datetime Report Generated by CPN: 07/06/2020 06:18 DEMOGRAPHIC EGA NST: 39.3 INDICATION Indication for Study (NST) Other: Gestational age greater than 32 weeks VITAL SIGNS Temperature - NST: 98.3 Pulse - NST: 87 RESP - NST: 17 NBPSYS NST: 128 NBPDIA NST: 86 MONITORING Monitor Explained: Monitor Explained; Test Explained; Patient Verbalized Understanding Time on Monitor: 07/02/2020 00:33 Time off Monitor: 07/02/2020 01:23 NST Duration: 50 NST INTERVENTIONS NST Interventions: PO Hydration; Reposition Patient Physician Notified NST: Dr. Kapadia BABY A: [id number] BABY A Movement : Present Contraction Frequency : rare FHR Baseline : 135 Accelerations : 15X15 Decelerations : None Variability : Moderate 6-25bpm NST Review: Meets Criteria for Reactive NST NST Review and Verified By : Marco Gar RN NST Results: Reactive NST REPORT Report Trigger: Send Report (Annotations: Data stored by N on behalf of user)
[2020-07-06] MEDS ORDERED: OXYTOCIN/0.9 % SODIUM CHLORIDE 30 UNIT/500 ML RTUINJ IV PRN ×2 (06:26→12:51)
[2020-07-06] MEDS ORDERED: RINGERS SOLUTION,LACTATED 1,000 ML IV ONE (06:26)
[2020-07-06] MEDS ORDERED: RINGERS SOLUTION,LACTATED 1,000 ML IV PRN (06:26)
[2020-07-06 06:53] LABS: APPEARANCE,URINE CLOUDY; BILIRUBIN,URINE NEGATIVE (NEGATIVE); COLOR,URINE YELLOW; GLUCOSE, URINE NEGATIVE (NEGATIVE); KETONES,URINE NEGATIVE (NEGATIVE); LEUKOCYTE ESTERASE,URINE SMALL (NEGATIVE); NITRITE,URINE NEGATIVE (NEGATIVE); PROTEIN,URINE 30 mg/dL (NEGATIVE); URINE SPECIFIC GRAVITY 1.017
[2020-07-06 07:10] LABS: URINE AMPHETAMINES SCREEN NEGATIVE; URINE BARBITURATES SCREEN NEGATIVE; URINE BENZODIAZEPINES SCREEN NEGATIVE; URINE COCAINE SCREEN NEGATIVE; URINE MARIJUANA (THC) SCREEN NEGATIVE; URINE METHADONE SCREEN NEGATIVE; URINE PHENCYCLIDINE SCREEN NEGATIVE
[2020-07-06 07:10] LABS: ABSOLUTE EOSINOPHILS # (AUTO) 0.1 10^3/uL (0.0-0.6); ABSOLUTE LYMPHOCYTES (AUTO) 2.4 10^3/uL (0.5-4.7); ABSOLUTE MONOCYTES (AUTO) 0.7 10^3/uL (0.1-1.4); ABSOLUTE NEUT (AUTO) 5.9 10^3/uL (1.7-8.2); BASOPHILS % (AUTO) 0.5 % (0-2); EOSINOPHILS % (AUTO) 0.9 % (0-6); HEMATOCRIT 36.7 % (36.0-47.0); HEMOGLOBIN 12.9 g/dL (12.0-15.5); MEAN CORPUSCULAR HEMOGLOBIN 29.8 pg (27.0-33.4); MEAN CORPUSCULAR HGB CONC 35.2 g/dL (32.0-36.0); MEAN CORPUSCULAR VOLUME 85 fl (80-97); MONOCYTES % (AUTO) 7.9 % (3-13); PLATELET COUNT 140 10^3/uL (150-450); RED BLOOD COUNT 4.33 10^6/uL (3.72-5.28); RED CELL DISTRIBUTION WIDTH 14.4 % (11.5-14.0); SEGMENTED NEUTROPHILS % (AUTO) 64.7 % (42-78); TOTAL CELLS COUNTED % (AUTO) 100 %; WHITE BLOOD COUNT 9.1 10^3/uL (4.0-10.5)
[2020-07-06] MEDS ORDERED: MISOPROSTOL 0.2 MG TABLET ONE (07:51)
[2020-07-06] MEDS ORDERED: LIDOCAINE 1% INJ-PF (10 MG/ML) 30 ML SDV ONE (07:51)
[2020-07-06] MEDS ORDERED: OXYTOCIN 10 UNIT/ML VIAL ONE (07:51)
[2020-07-06] MEDS ORDERED: OXYTOCIN/0.9 % SODIUM CHLORIDE 30 UNIT/500 ML RTUINJ ONE (07:51)
--- NOTE | 2020-07-06 08:31 | Admission Physical ---
Datetime Report Generated by CPN: 07/06/2020 08:31 CURRENT ADMISSION Indication for Induction: Chronic Secondary HTN (Specify Cause); Maternal Diabetes Admit Impression : Term, Intrauterine Admit Plan: Admit to Unit; Initiate Labor Induction Protocol ALLERGIES Medication Allergies: Yes Medication Allergies: amoxicillin (07/06/2020) Latex: No Latex Allergies Food Allergies: none Environmental Allergies: seasonal allergies OBSTETRICAL HISTORY EDC: 07/06/2020 00:00 : 4 Para: 3 Term: 3 : 0 SAB: 0 IAB: 0 Ectopic: 0 Livin Cesareans: 0 VBACs: 0 Multiple Births: 0 Gestational Diabetes: Yes Rh Sensitization: No Incompetent Cervix: No TUNG: No Infertility: No ART Treatment: No Uterine Anomaly: No IUGR: No Hx Previous C/S: No Macrosomia: No Hx Loss/Stillborn: No PIH: Yes Hx : No Placenta Previa/Abruption: No Depression/PP Depression: No PTL/PROM: No Post Hemorrhage: No Current Procedures: Ultrasound; NST Obstetrical History Comments: - 2007 [id number]. pre e and htn G4- Current SEE RECORDS Alcohol: No Marijuana : No Cocaine: No Other Illicit Drugs: No Cigarettes: Former Smoker. 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 Surgery: No Heart Disease: No Hosp/Surgery: No Autoimmune Disorder: No Anesthetic Complications: No Kidney Disease: No Abnormal Pap Smear: No Neuro/Epilepsy: No Psychiatric Disorders: No Other Medical Diseases: No Hepatitis/Liver Disease: No Significant Family History: No Varicosities/Phlebitis: No Trauma/Violence : No Thyroid Dysfunction: No Medical History Comments: PCOS, unspecified maternal HTN, Hx of pre e with previous INFECTIOUS HISTORY Gonorrhea: No Genital Herpes: No Chlamydia: No Tuberculosis: No Syphilis: No Hepatitis: No HIV/AIDS Exposure: No Rash or Viral Illness: No HPV: No PHYSICAL EXAM General: Normal HEENT: Normal Neurologic: Normal Thyroid: Normal Heart: Normal Lungs: Normal Breast: Normal Back: Normal Abdomen: Normal Genitourinary Exam: Normal Extremities: Normal DTRs: Normal Pelvic Type: Adequate Vital Signs: Reviewed MEMBRANES Membranes: Intact FETUS A Monitoring: External US Admit Comment: w/ Hx CHTN, Gestational thrombocytopenia, and DC-GDM presents for IOL at 40 weeks. Pt doing well this morning, no complaints. Comfortable, IV Pitocin infusing. Pt plans an epidural when in active labor. GBS negative. Attending MD today is Dr Byrne. PLANS FOR LABOR AND DELIVERY Labor and Delivery: None Pain Management: Epidural Feeding Preference: Breast Benefit of Breast Feed Discussed: Yes Circumcision: Yes INFORMED CONSENT Assignment: Addie Byrne MD Signature: with User ID: [email or web address] : with User ID: [email or web address]
[2020-07-06] MEDS ORDERED: EPHEDRINE SULFATE INJ 50 MG/1 ML AMPULE ONE (10:27)
[2020-07-06] MEDS ORDERED: FENTANYL/BUPIVACAINE/NS/PF 300 MCG/150 ML RTUINJ EPI ONE (10:27)
[2020-07-06] MEDS ORDERED: ROPIVACAINE HCL 0.2% INJ/PF (2 MG/ML) 20 ML SDV ONE (10:27)
[2020-07-06] MEDS ORDERED: ONDANSETRON HCL INJ/PF 4 MG/2 ML SDV ONE (11:32)
[2020-07-06] MEDS ORDERED: ONDANSETRON HCL INJ/PF 4 MG/2 ML SDV IV PRN (11:32)
--- NOTE | 2020-07-06 11:57 | L&D Progress Notes ---
PROGRESS NOTES Datetime Report Generated by CPN: 07/06/2020 11:57 PROGRESS NOTE Impression: Normal Progression of Labor; Reassuring Heart Rate Procedures: Artificial ROM; Sterile Vag Exam Plan: Continue Present Management; Anticipate Vaginal Delivery Vital Signs : Reviewed Comment: Pt comfortable w/ the epidural. VE /-1 after AROM w/ large amount of clear fluid. Position changes encouraged. Anticipate VAGINAL EXAM Dilatation: 9 Effacement: 90 Station: -1 Contractions: q1-2 LAST VAGINAL EXAM-NURSING Nursing Exam Dilitation: 9.0 Nursing Exam Effacement: 80 Nursing Exam Station: -1 Nursing Exam Contractions: Unable to tell frequency d/t pt movement and sitting up for epidural. MEMBRANES Membranes: Ruptured Amniotic Fluid Color: Clear FETUS A FHR - Baseline: 145 Monitoring: External US Variability: Moderate 6-25bpm Accelerations: 10X10 Decelerations: Variable SIGNATURE SIGNATURE: [id number];[id number];[id number] Assignment: Addie Byrne MD Signature: with User ID: [email or web address] : with User ID: [email or web address]
[2020-07-06] MEDS ORDERED: MEASLES,MUMPS&RUBELLA VACC/PF 0.5 ML VIAL SUBCUT PRN (12:51)
[2020-07-06] MEDS ORDERED: MAGNESIUM HYDROXIDE SUSP 30 ML UDCUP PO PRN (12:51)
[2020-07-06] MEDS ORDERED: NA PHOS,M-B/NA PHOS,DI-BA (ADULT) 133 ML ENEMA PR PRN (12:51)
[2020-07-06] MEDS ORDERED: PSEUDOEPHEDRINE HCL 30 MG TABLET PO PRN (12:51)
[2020-07-06] MEDS ORDERED: DIPHENHYDRAMINE HCL 25 MG CAPSULE PO PRN (12:51)
[2020-07-06] MEDS ORDERED: DIBUCAINE 1% OINTMENT 28 GM TP PRN (12:51)
[2020-07-06] MEDS ORDERED: ACETAMINOPHEN WITH CODEINE #3 TABLET PO PRN (12:51)
[2020-07-06] MEDS ORDERED: PROMETHAZINE HCL INJ 25 MG/1 ML VIAL IV PRN (12:51)
[2020-07-06] MEDS ORDERED: PROMETHAZINE HCL 25 MG TABLET PO PRN (12:51)
[2020-07-06] MEDS ORDERED: PROMETHAZINE HCL 25 MG SUPP.RECT PR PRN (12:51)
[2020-07-06] MEDS ORDERED: GLYCERIN/WITCH HAZEL LEAF 1 EACH MED..WIPE TP PRN (12:51)
[2020-07-06] MEDS ORDERED: DIPH/PERTUSS(ACELL)/TETANUS VAC/PF 0.5 ML SYR (>=10YO) IM PRN (12:51)
[2020-07-06] MEDS ORDERED: ACETAMINOPHEN 650 MG SUPP.RECT PR PRN (12:51)
[2020-07-06] MEDS ORDERED: IBUPROFEN 800 MG TABLET ONE (13:11)
[2020-07-06] MEDS ORDERED: METHYLERGONOVINE MALEATE INJ/PF 0.2 MG/1 ML AMPULE IM ONE (14:09)
[2020-07-06] MEDS ORDERED: METHYLERGONOVINE MALEATE INJ/PF 0.2 MG/1 ML AMPULE ONE (14:10)
--- NOTE | 2020-07-06 14:30 | Delivery Summary ---
Del Sum A-C Datetime Report Generated by CPN: 07/06/2020 14:30 DELIVERY PERSONNEL DELIVERY PERSONNEL: [id number] Delivery Doctor:: Leisa Sloan CNM Nurse Conceptor Certified:: Leisa Sloan CNM Labor and Delivery Nurse:: Janessa Garcia RNfilter bed placer Nurse:: ANGEL Mcgee Distance Learning Technician/TICKETING CLERK: Cheryl Jimenez CST Distance Learning Technician/TICKETING CLERK: Deana Cerda CST Additional Personnel: : Katt Feldman, RN MATERNAL INFORMATION Delivery Anesthesia: Epidural Medications After Delivery: Pitocin 30 Units in 500ml NS/D5W Delivery QBL: 50 Maternal Complications: None Provider Comments: of VMI, delivered ARIADNA w/ compound presentation of the posterior arm and looped piece of cord at baby's neck. Bulb suctioned. Placed on pts abdoman in stable condition, crying. Cord clamped and cut after one minute. Cord blood collected. Placenta S/C/I, FF w/ minimal lochia. perineum intact. IV Pitocin infusing. Apgars 8,9. QBL 50 ml. Pt and baby in stable condition, skin to skin. Plans to breastfeed. Attending MD is Dr Byrne. LABOR SUMMARY EDC: 07/06/2020 00:00 No. Babies in Womb: 1 Attempted: No Labor Anesthesia: Epidural LABOR INFORMATION Reason for Induction: Maternal Diabetes Onset of Labor: 07/06/2020 10:17 Complete Dilatation: 07/06/2020 12:22 Oxytocin: Induction Group B Beta Strep: Negative Antibiotics # of Doses: n/a Name of Antibiotic Given: n/a Steroids Given: None Reason Steroids Not Administered: Not Applicable MEMBRANES Membranes Rupture Method: Artificial Rupture of Membranes: 07/06/2020 10:52 Length of Rupture (hr): 1.77 Amniotic Fluid Color: Clear Amniotic Fluid Amount: Moderate Amniotic Fluid Odor: Normal STAGES OF LABOR Stage 1 hr: 2 Stage 1 min: 5 Stage 2 hr: 0 Stage 2 min: 16 Stage 3 hr: 0 Stage 3 min: 6 Total Time in Labor hr: 2 Total Time in Labor min: 27 VAGINAL DELIVERY Episiotomy: None Laceration #1: None Laceration Extension #1: N/A Laceration Repair: Not Applicable Sponge Count Correct: N/A Sharps Count Correct: N/A CSECTION DELIVERY Primary Indication: N/A Secondary Indication: N/A CSection Incidence: N/A Labor: N/A Elective: N/A CSection Incision: N/A BABY A INFORMATION Infant Delivery Date/Time: 07/06/2020 12:38 Method of Delivery: Vaginal Nurse Controlled Delivery: No Born in Route : No : N/A Forceps: N/A Vacuum Extraction: N/A Shoulder Dystocia : No PRESENTATION/POSITION BABY A Presentation: Cephalic Cephalic Presentation: Vertex Vertex Position: Left Occipital Anterior Breech Presentation: N/A PLACENTA INFORMATION BABY A Placenta Delivery Time : 07/06/2020 12:44 Placenta Method of Delivery: Spontaneous Placenta Status: Delivered SCORES BABY A Heart Rate 1 min: >100 bpm Resp Effort 1 min: Good Cry Reflex Irritability 1 min: Cough or Sneeze or Pulls Away Muscle Tone 1 min: Active Motion Color 1 min: Blue/Pale SCORE 1 MIN: 8 Heart Rate 5 min: >100 bpm Resp Effort 5 min: Good Cry Reflex Irritability 5 min: Cough or Sneeze or Pulls Away Muscle Tone 5 min: Active Motion Color 5 min: Body [place], Extremities Blue Resuscitation Effort 5 min: N/A SCORE 5 MIN: 9 Resuscitation Effort 10 min: N/A INFANT INFORMATION BABY A Gestational Age at Delivery: 40.0 Gestational Status: Full Term- 39- 40.6 Weeks Infant Outcome : Liveborn Condition : Stable Sex: Male IDENTIFICATION BABY A Infant Verification Date/Time: 07/06/2020 12:50 ID Band Number: [id number] Mother's Name Verified: Yes Infant RN Verifying : Floyd, LYNDSAY Additional Verifying Personnel: Avery Garcia RN WEIGHT/LENGTH BABY A Infant Birthweight (gm): 4425 Weight (lb): 9 Weight (oz): 12 Infant Length (in): 22.00 Length (cm): 55.88 CORD INFORMATION BABY A No. Cord Vessels: 3 Nuchal Cord : N/A Nuchal Cord- Other: compound left with loop of cord Cord Blood Taken: Yes-For Storage (Mom's Blood type +) Suction: None ASSESSMENT BABY A Complications: Other Complications- Other: Compound left arm with loop of cord between neck and shoulder Physical Findings at Delivery: Within Normal Limits Infant Respirations: Appears Normal Skin to Skin: Yes Exerciser Horse/ALS Called : No Care By: Gladys Avila RN Transferred To: Remains with Mother BABY B INFORMATION : N/A SIGNATURES Assignment: Addie Byrne MD Signature: with User ID: Uche : with User ID: [email or web address]
--- NOTE | 2020-07-06 14:30 | Birth Certificate Data ---
Cert Data Datetime Report Generated by CARMEN: 07/06/2020 14:30 CERTIFICATE DATA Delivery Provider: Leisa Sloan CNM (07/02/2020 00:43:ANGEL Mcgee) 47a. Care: Yes (07/02/2020 00:43:Ted Suh RN) 47b. Date of First Visit: 12/26/2019 00:00 (07/02/2020 00:43:Ted Suh RN) 47c. Date of Last Visit: 06/30/2020 00:00 (07/02/2020 00:43:Michelle Ashford RN) 47d. Number of Visits: 14 (07/02/2020 00:43:Michelle Ashford RN) 48a. Number of Prev Live Births: 3 (07/02/2020 00:43:Ted Suh RN) 48b. Now Livin (07/02/2020 00:43:Ted Suh RN) 48c. Live Births Now : 0 (07/02/2020 00:43:QS system process) 48d. Date of Last Live : 12/08/2018 00:00 (07/02/2020 00:43:Janessa Garcia RN) 48e. Losses: 0 (07/02/2020 00:43:Ted Suh RN) RISK FACTORS IN THIS 49a. Diabetes: Yes (07/02/2020 00:43:Ted Suh RN) Type of Diabetes: Gestational Diabetes (07/02/2020 00:43:Ted Suh RN) Type of Hypertension: Gestational (PIH, Pre-eclampsia) (07/02/2020 00:43:Ted Suh RN) 49c. Previous Births: 0 (07/02/2020 00:43:Ted Suh RN) 49d. Stillborns: No (07/02/2020 00:43:Ted Suh RN) 49d. IUGR: No (07/02/2020 00:43:Ted Suh RN) 49e. Infertility Treatment: No (07/02/2020 00:43:Ted Suh RN) 49f. Previous Cesareans: 0 (07/02/2020 00:43:Ted Suh RN) Mother's Height 50b. Height Inches: 65 (07/02/2020 00:30:QS system process) Mother's Weight 51a. Pre- Weight (lbs): 220 (07/02/2020 00:43:Ted Suh RN) 51b. Weight at Delivery (lbs): 249 (07/06/2020 06:33:QS system process) 52. Dt Last Normal Menses Began: 09/15/2019 00:00 (07/02/2020 00:43:Ted Suh RN) Infections Present/Treated 53a. Gonorrhea: No (07/02/2020 00:43:Ted Suh RN) Results this Hospital Visit : Negative (07/02/2020 00:43:Mariaa Gar RN) 53b. Syphilis: No (07/02/2020 00:43:Ted Suh RN) Results this Hospital Visit: NONREACTIVE (07/06/2020 06:45:QS system process) 53c. Chlamydia: No (07/02/2020 00:43:Ted Suh RN) Results this Hospital Visit: Negative (07/02/2020 00:43:Mariaa Gar RN) 53d. Hepatitis B: No (07/02/2020 00:43:Ted Suh RN) Results this Hospital Visit: Negative (07/02/2020 00:43:Mariaa Gar RN) 53e. Hepatitis C: Negative (07/02/2020 00:43:Mariaa Gar RN) 53h. Mother Tested for HBsAG: Yes (07/02/2020 00:43:Mariaa Gar RN) 53i. Date Tested: 12/26/2019 00:00 (07/02/2020 00:43:Mariaa Gar RN) 53j. Test Result: Negative (07/02/2020 00:43:Mariaa Gar RN) Obstetric Procedures 54a, b, c. Obstetric Procedures: Ultrasound; NST (07/02/2020 00:43:Ted Suh RN) Cigarette Smoking Cigarette Smoking: Former Smoker. [id number] (07/02/2020 00:43:Ted Suh RN) 55a. 3 Months Before Preg - Ci (07/02/2020 00:43:Ted Suh RN) 55a. Packs: 0 (07/02/2020 00:43:Ted Suh RN) 55b. 1st Trimester of Preg- Ci (07/02/2020 00:43:Ted Suh RN) 55b. Packs: 0 (07/02/2020 00:43:Ted Suh RN) 55c. 2nd Trimester of Preg- Ci (07/02/2020 00:43:Ted Suh RN) 55c. Packs: 0 (07/02/2020 00:43:Ted Suh RN) 55d. 3rd Trimester of Preg- Ci (07/02/2020 00:43:Ted Suh RN) 55d. Packs: 0 (07/02/2020 00:43:Ted Suh RN) Onset of Labor 56a. PROM >12 Hrs: 1.77 (07/02/2020 00:43:QS system process) 56b. Precipitous Labor <3 Hrs: 2 (07/02/2020 00:43:QS system process) 56c. Prolonged Labor > 20 Hrs: 2 (07/02/2020 00:43:QS system process) 57a. Induction of Labor: Induction (07/02/2020 00:43:ANGEL Mcgee) 57c. Non-Vertex Presentation A: Vertex (07/02/2020 00:43:ANGEL Mcgee) 57d. Steroids - Lung Mat: None (07/02/2020 00:43:ANGEL Mcgee) 57d. Steroids - Lung Mat: Not Applicable (07/02/2020 00:43:ANGEL Mcgee) 57g. Moderate/Heavy Meconium: Clear (07/06/2020 11:52:Janessa Garcia RN) 57h. Intolerance of Labor: N/A (07/02/2020 00:43:ANGEL Mcgee) : N/A (07/02/2020 00:43:ANGEL Mcgee) 57i. Epidural/Spinal Anesthesia: Epidural (07/02/2020 00:43:ANGEL Mcgee) Method of Delivery 58a. Forceps - Unsuccessful A: N/A (07/02/2020 00:43:ANGEL Mcgee) 58b. Vacuum - Unsuccessful A: N/A (07/02/2020 00:43:Sharon Camp, [facility]) 58c. Presentation at 58c. Presentation at - A : Vertex (07/02/2020 00:43:Sharon Camp, [facility]) 58c. Presentation at - A : N/A (07/02/2020 00:43:[facility], [facility]) 58c. Presentation at - A : Cephalic (07/06/2020 11:52:Janessa Garcia RN) Final Route and Method of Del 58d. Baby A Route/Delivery: Vaginal (07/06/2020 12:38:Sharon Camp, [facility]) 58e. Trial of Labor Attempted: No (07/02/2020 00:43:Sharon Camp, [facility]) 58e. Trial of Labor Attempted A: N/A (07/02/2020 00:43:Sharon Camp, [facility]) 58e. Trial of Labor Attempted B: N/A (07/02/2020 00:43:Sharon Camp, [facility]) Maternal Morbidity 59b. 3rd or 4th Degree Lacs: None (07/02/2020 00:43:Sharon Camp, RNC) Birthweight Baby A: 4425 (07/02/2020 00:43:Diana Ram RN) 60a. Pounds : 9 (07/02/2020 00:43:QS system process) 60b. Ounces: 12 (07/02/2020 00:43:QS system process) 61. GA at Delivery Baby A: 40.0 (07/02/2020 00:43:Sharon Camp, RNC) : Full Term- 39- 40.6 Weeks (07/02/2020 00:43:QS system process) 62a. 5 Minute Baby A: 9 (07/02/2020 00:43:QS system process)
[2020-07-06] MEDS: IBUPROFEN 800 MG TABLET PO SCH ×2 (14:38→21:56)
[2020-07-06] MEDS: FAMOTIDINE 20 MG TABLET PO SCH (21:56)
[2020-07-07] MEDS: IBUPROFEN 800 MG TABLET PO SCH ×3 (06:01→23:13)
[2020-07-07 07:38] LABS: HEMATOCRIT 31.8 % (36.0-47.0); HEMOGLOBIN 11.4 g/dL (12.0-15.5); MEAN CORPUSCULAR VOLUME 86 fl (80-97); PLATELET COUNT 130 10^3/uL (150-450); RED BLOOD COUNT 3.69 10^6/uL (3.72-5.28); RED CELL DISTRIBUTION WIDTH 14.6 % (11.5-14.0); WHITE BLOOD COUNT 9.4 10^3/uL (4.0-10.5)
--- NOTE | 2020-07-07 09:05 | PDOC PROGRESS REPORT ---
Subjective-OB Progress Note for:: 07/07/20 Subjective: Doing well, no c/o, hsb and baby in room, feels good Physical Exam (OB) Vital Signs: Temp Pulse Resp BP Pulse Ox 98.0 F 78 16 137/88 H 99 07/07/20 08:14 07/07/20 08:14 07/07/20 08:14 07/07/20 08:14 07/07/20 08:14 Intake & Output 07/06/20 07/07/20 07/08/20 06:59 06:59 06:59 Intake Total 1000 Balance 1000 Weight 112.9 kg - PIH/Pre-Eclampsia DTR's: 2 + Clonus: Negative Headache: Absent Epigastric Pain: No Visual Changes: No - Maternal Morbidity 59. Maternal Morbidity (serious complications experinced by the mother associated with labor and delivery: None of the above - Lochia Lochia Amount: Scant < 10 ml Lochia Color: Rubra/Red - Abdomen Description: Soft, Round Hernia Present: No Fundal Description: Firm, Midline Fundal Height: u/u - u/2 Objective-Diagnostic Laboratory: 07/07/20 07:20 07/07/20 07:20 WBC 9.4 RBC 3.69 L Hgb 11.4 L Hct 31.8 L MCV 86 MCH 31.0 MCHC 36.0 RDW 14.6 H Plt Count 130 L Assessment and Plan(PN) - Assessment and Plan (1) Gestational thrombocytopenia without hemorrhage in third trimester Is this a current diagnosis for this admission?: Yes (2) 40 weeks gestation of Is this a current diagnosis for this admission?: Yes (3) Gestational diabetes mellitus (GDM) in childbirth, diet controlled Is this a current diagnosis for this admission?: Yes (4) Chronic hypertension affecting Is this a current diagnosis for this admission?: Yes - Time Spent with Patient Time with patient: Less than 15 minutes Medications reviewed and adjusted accordingly: Yes - Disposition Anticipated Discharge Disposition: Home, Self Care Anticipated Discharge Timeframe: within 24 hours
[2020-07-07] MEDS: FERROUS SULFATE 325 MG TABLET PO SCH ×2 (09:15→17:30)
[2020-07-07] MEDS: DOCUSATE SODIUM 100 MG CAPSULE PO SCH ×3 (09:15→17:30)
[2020-07-07] MEDS: SENNOSIDES/DOCUSATE 8.6-50 MG 1 EACH TABLET PO SCH (09:15)
[2020-07-07] MEDS: PRENATAL VITAMIN W DHA CAPSULE PO SCH (09:15)
[2020-07-07] MEDS: FAMOTIDINE 20 MG TABLET PO SCH ×2 (09:15→23:15)
[2020-07-07] MEDS: BENZOCAINE/MENTHOL AEROSOL SPRAY 56 ML TOP PRN ×2 (09:20→13:59)
[2020-07-08] MEDS: IBUPROFEN 800 MG TABLET PO SCH ×2 (05:12→13:06)
[2020-07-08] MEDS: FERROUS SULFATE 325 MG TABLET PO SCH ×2 (07:51→09:33)
[2020-07-08 08:23] VITALS: BP 133/80
[2020-07-08] MEDS: DOCUSATE SODIUM 100 MG CAPSULE PO SCH (09:33)
[2020-07-08] MEDS: FAMOTIDINE 20 MG TABLET PO SCH (09:33)
[2020-07-08] MEDS: PRENATAL VITAMIN W DHA CAPSULE PO SCH (09:33)
[2020-07-08] MEDS: SENNOSIDES/DOCUSATE 8.6-50 MG 1 EACH TABLET PO SCH (09:33)
--- NOTE | 2020-07-08 11:48 | PDOC DISCHARGE SUMMARY ---
Impression - Admit/DC Date/PCP Admission Date/Primary Care Provider: 07/06/20 06:10 ANUJ JAMES MD Discharge Date: 07/08/20 - Discharge Diagnosis (1) 40 weeks gestation of Is this a current diagnosis for this admission?: Yes (2) Chronic hypertension affecting Is this a current diagnosis for this admission?: Yes (3) Gestational diabetes mellitus (GDM) in childbirth, diet controlled Is this a current diagnosis for this admission?: Yes (4) Gestational thrombocytopenia without hemorrhage in third trimester Is this a current diagnosis for this admission?: Yes - Assessment Summary: 30yo G4 now P4 s/p pp 2- stable and ready for discharge, denies any concerns, understands warning s/s f/u bp checked scheduled for Monday - Additional Information Resuscitation Status: Full Code Discharge Diet: As Tolerated, Regular Discharge Activity: Activity As Tolerated, Balance Activity w/Rest, No Lifting Over 10 Pounds, Pelvic Rest, No tub bath, Walk Frequently Referrals: MARTINA STONE CNM [CERTIFIED NURSE MICROBIOLOGICAL ANALYST] - 07/10/20 1:00 pm (CALL THE OFFICE FOR QUESTIONS OR CONCERNS) Prescriptions: Ibuprofen [Motrin 800 mg Tablet] 800 mg PO Q8HP PRN #20 tablet PRN Reason: For Pain Scale 1-3 Home Medications: Vit,Calc76/Iron/Folic [Pnv 29-1 Tablet] 1 tab PO DAILY 12/04/18 Ibuprofen [Motrin 800 mg Tablet] 800 mg PO Q8HP PRN #20 tablet 07/08/20 Hospital Course 59. Maternal Morbidity (serious complications experinced by the mother associated with labor and delivery: None of the above Results Laboratory Results: WBC 9.4 10^3/uL (4.0-10.5) 07/07/20 07:20 RBC 3.69 10^6/uL (3.72-5.28) L 07/07/20 07:20 Hgb 11.4 g/dL (12.0-15.5) L 07/07/20 07:20 Hct 31.8 % (36.0-47.0) L 07/07/20 07:20 MCV 86 fl (80-97) 07/07/20 07:20 MCH 31.0 pg (27.0-33.4) 07/07/20 07:20 MCHC 36.0 g/dL (32.0-36.0) 07/07/20 07:20 RDW 14.6 % (11.5-14.0) H 07/07/20 07:20 Plt Count 130 10^3/uL (150-450) L 07/07/20 07:20 Lymph % (Auto) 26.0 % (13-45) 07/06/20 06:45 Young % (Auto) 7.9 % (3-13) 07/06/20 06:45 Eos % (Auto) 0.9 % (0-6) 07/06/20 06:45 Baso % (Auto) 0.5 % (0-2) 07/06/20 06:45 Absolute Neuts (auto) 5.9 10^3/uL (1.7-8.2) 07/06/20 06:45 Absolute Lymphs (auto) 2.4 10^3/uL (0.5-4.7) 07/06/20 06:45 Absolute Monos (auto) 0.7 10^3/uL (0.1-1.4) 07/06/20 06:45 Absolute Eos (auto) 0.1 10^3/uL (0.0-0.6) 07/06/20 06:45 Absolute Basos (auto) 0.0 10^3/uL (0.0-0.2) 07/06/20 06:45 Seg Neutrophils % 64.7 % (42-78) 07/06/20 06:45 Urine Color YELLOW 07/06/20 06:20 Urine Appearance CLOUDY 07/06/20 06:20 Urine pH 6.0 (5.0-9.0) 07/06/20 06:20 Ur Specific [place] 1.017 07/06/20 06:20 Urine Protein 30 mg/dL (NEGATIVE) H 07/06/20 06:20 Urine Glucose (UA) NEGATIVE mg/dL (NEGATIVE) 07/06/20 06:20 Urine Ketones NEGATIVE mg/dL (NEGATIVE) 07/06/20 06:20 Urine Blood NEGATIVE (NEGATIVE) 07/06/20 06:20 Urine Nitrite NEGATIVE (NEGATIVE) 07/06/20 06:20 Urine Bilirubin NEGATIVE (NEGATIVE) 07/06/20 06:20 Urine Urobilinogen 2.0 mg/dL (<2.0) H 07/06/20 06:20 Ur Leukocyte Esterase SMALL (NEGATIVE) H 07/06/20 06:20 Urine Ascorbic Acid NEGATIVE (NEGATIVE) 07/06/20 06:20 Urine Opiates Screen NEGATIVE 07/06/20 06:20 Urine Methadone Screen NEGATIVE 07/06/20 06:20 Ur Barbiturates Screen NEGATIVE 07/06/20 06:20 Ur Phencyclidine Scrn NEGATIVE 07/06/20 06:20 Ur Amphetamines Screen NEGATIVE 07/06/20 06:20 U Benzodiazepines Scrn NEGATIVE 07/06/20 06:20 Urine Cocaine Screen NEGATIVE 07/06/20 06:20 U Marijuana (THC) Screen NEGATIVE 07/06/20 06:20 RPR NONREACTIVE (NONREACTIVE) 07/06/20 06:45 Blood Type A POSITIVE 07/06/20 06:45 Antibody Screen NEGATIVE 07/06/20 06:45
== END 2020-07-08 13:45 | disposition home or self-care (01) | DRG 806 ==
LOC: LR 06:10 → 2S 15:33
PROVIDERS: ADMIT Obstetrics & Gynecology; ATTEND Obstetrics & Gynecology
PROC: 10E0XZZ Delivery of Products of Conception, External Approach (ICD-10-PCS; principal; 2020-07-06)
DX: O24.420 Gestational diabetes mellitus in childbirth, diet controlled (principal); O99.12 Other diseases of the blood and blood-forming organs and certain disorders involving the immune mechanism complicating childbirth; Z37.0 Single live birth; O16.4 Unspecified maternal hypertension, complicating childbirth; D69.6 Thrombocytopenia, unspecified; O32.6XX0 Maternal care for compound presentation, not applicable or unspecified; O69.81X0 Labor and delivery complicated by cord around neck, without compression, not applicable or unspecified; Z3A.40 40 weeks gestation of pregnancy; Z88.0 Allergy status to penicillin; Z87.891 Personal history of nicotine dependence
CPT/HCPCS: 1967; 36415; 80307; 81005; 85025; 85027; 86592; 86850; 86900; 86901; J2210; J2405; J2590; J2795; J3010; J3490